=== PATIENT | male | born 1955 | race Caucasian/White ===

== ENCOUNTER 2017-03-20 14:00 | Outpatient (CLI) | payer BC | END 2017-03-20 19:01 | disposition home or self-care (01) | LOC: SRD 14:00 | PROVIDERS: ATTEND Otolaryngology | DX: Z01.818 Encounter for other preprocedural examination (principal); R05 Cough | CPT/HCPCS: 71020-TC ==

== ENCOUNTER 2017-03-23 07:05 | Day surgery (SDC) | payer BC ==
[~2017-03-23] VITALS: Ht 190.5 cm; Wt 90.7 kg
[2017-03-23] MEDS ORDERED: CEFAZOLIN SOD 1 GM/ ISO 50 ML PREMIX IV ONE (07:30)
[2017-03-23] MEDS ORDERED: fentaNYL CITRATE 250 MCG/5 ML AMP IV ONE (07:31)
[2017-03-23] MEDS ORDERED: PROPOFOL 200MG/ 20ML VIAL (DIPRIVAN) IV ONE (07:31)
[2017-03-23] MEDS ORDERED: SEVOFLURANE 15 MIN GAS INH ONE (07:31)
[2017-03-23] MEDS ORDERED: ONDANSETRON HCL 4 MG/2 ML VIAL IVP ONE (07:31)
[2017-03-23] MEDS ORDERED: DEXAMETHASONE SOD PHOSPHATE 4 MG/ML VIAL IVP ONE (07:31)
[2017-03-23] MEDS ORDERED: MIDAZOLAM HCL 5 MG/5 ML VIAL IVP ONE (07:31)
[2017-03-23] MEDS ORDERED: LR 1,000 ML IV.SOLN IV ONE (07:31)
[2017-03-23] MEDS ORDERED: NS IRRIG SOLN 1000 ML IR ONE (07:31)
[2017-03-23] MEDS ORDERED: CEFAZOLIN 2 GM IVPB PREMIX 50 ML IV ONE (07:31)
[2017-03-23] MEDS ORDERED: LR 1,000 ML IV SCH (08:11)
[2017-03-23] MEDS ORDERED: HYDROmorphone 1 MG INJ. 1 MG/ML AMPUL IVP PRN (08:15)
[2017-03-23] MEDS ORDERED: HYDROmorphone 2 MG/ML VIAL IVP PRN ×2 (08:15)
[2017-03-23] MEDS ORDERED: ONDANSETRON HCL 4 MG/2 ML VIAL IVP PRN ×2 (08:15→09:15)
[2017-03-23] MEDS ORDERED: MEPERIDINE HCL/PF 25 MG/ML DISP.SYRIN IVP PRN ×2 (08:15)
[2017-03-23] MEDS ORDERED: ACETAMINOPHEN/CODEINE 300 MG-30 MG TABLET PO PRN (09:15)
[2017-03-23 10:05] VITALS: BP_SYST 110
== END 2017-03-23 12:20 | disposition home or self-care (01) ==
LOC: SMU 07:05 → SDS 07:05
PROVIDERS: ATTEND Otolaryngology
DX: D17.0 Benign lipomatous neoplasm of skin and subcutaneous tissue of head, face and neck (principal); Z90.49 Acquired absence of other specified parts of digestive tract; Z98.890 Other specified postprocedural states
CPT/HCPCS: 21556; 88304; J0690; J7120; 88305; J1100; J2250; J2405; J2704; J3010

== ENCOUNTER 2017-05-09 03:50 | Emergency (ER) | payer BC ==
[~2017-05-09] VITALS: Ht 190.5 cm; Wt 93.0 kg
[2017-05-09 03:58] VITALS: BP_SYST 142
[2017-05-09 05:20] VITALS: BP_SYST 142
== END 2017-05-09 05:20 | disposition home or self-care (01) ==
LOC: SED 03:50
DX: S69.92XA Unspecified injury of left wrist, hand and finger(s), initial encounter (principal); W22.8XXA Striking against or struck by other objects, initial encounter; Y93.89 Activity, other specified; Y92.89 Other specified places as the place of occurrence of the external cause; Y99.8 Other external cause status
CPT/HCPCS: 99284